=== PATIENT | female | born 1955 | race Caucasian/White ===

== ENCOUNTER 2023-04-02 19:22 | Emergency (ER) | payer OTHER, MEDICARE, BC, SELFPAY ==
[2023-04-02 19:22] VITALS: BP 199/107; PULSE 79; RESP 16; TEMP 36.7; O2SAT 100
--- NOTE | 2023-04-02 19:22 | XR_ITS ---
PROCEDURE INFORMATION: Exam: XR Right Shoulder Exam date and time: 04/02/2023 7:58 PM Age: 68 years old Clinical indication: Injury or trauma; Fall; Additional info: Fall, pain TECHNIQUE: Imaging protocol: Radiologic exam of the right shoulder. Views: 2 or more views. COMPARISON: CT CERVICAL SPINE WO CON 04/02/2023 7:40 PM FINDINGS: Bones/joints: Comminuted displaced fracture of the distal clavicle with the proximal fragment elevated approximally 16 mm, potentially breaching the skin surface. Soft tissues: See Bones/joints finding. IMPRESSION: Comminuted displaced fracture of the distal clavicle with the proximal fragment elevated approximally 16 mm, potentially breaching the skin surface.
--- NOTE | 2023-04-02 19:22 | CT_ITS ---
PROCEDURE INFORMATION: Exam: CT Head Without Contrast Exam date and time: 04/02/2023 7:38 PM Age: 68 years old Clinical indication: Injury or trauma; Fall TECHNIQUE: Imaging protocol: Computed tomography of the head without contrast. Radiation optimization: All CT scans at this facility use at least one of these dose optimization techniques: automated exposure control; mA and/or kV adjustment per patient size (includes targeted exams where dose is matched to clinical indication); or iterative reconstruction. REPORTING DATA: Count of CT and Cardiac NM exams in prior 12 months: This patient has received 0 known CTs and 0 known cardiac nuclear medicine studies in the 12 months prior to the current study. COMPARISON: No relevant prior studies available. FINDINGS: Brain: White matter hypodensity which is nonspecific but compatible with small vessel occlusive change. Global atrophy. No mass. No hemorrhage. Cerebral ventricles: No ventriculomegaly. Paranasal sinuses: No fluid levels. Mastoid air cells: Visualized mastoid air cells are well aerated. Bones/joints: No acute fracture. Soft tissues: No significant soft tissue abnormality. IMPRESSION: Chronic changes without acute process.
--- NOTE | 2023-04-02 19:22 | CT_ITS ---
PROCEDURE INFORMATION: Exam: CT Cervical Spine Without Contrast Exam date and time: 04/02/2023 7:40 PM Age: 68 years old Clinical indication: Injury or trauma; Fall; Additional info: Fall, pain TECHNIQUE: Imaging protocol: Computed tomography of the cervical spine without contrast. Radiation optimization: All CT scans at this facility use at least one of these dose optimization techniques: automated exposure control; mA and/or kV adjustment per patient size (includes targeted exams where dose is matched to clinical indication); or iterative reconstruction. REPORTING DATA: Count of CT and Cardiac NM exams in prior 12 months: This patient has received 0 known CTs and 0 known cardiac nuclear medicine studies in the 12 months prior to the current study. COMPARISON: CT HEAD/BRAIN WO CON 04/02/2023 7:38 PM FINDINGS: Bones/joints: Degenerative changes of the spine. Scoliosis. No fracture. Lungs: Apical emphysema. Soft tissues: No soft tissue swelling. IMPRESSION: Chronic changes without acute process.
[2023-04-02 19:30] VITALS: BP 177/103; PULSE 76; O2SAT 100
[2023-04-02 20:00] VITALS: BP 194/118; PULSE 83; O2SAT 100
--- NOTE | 2023-04-02 20:23 | PC.NURSE ---
Pt provided with water
[2023-04-02 20:30] VITALS: BP 194/105; PULSE 81; O2SAT 100
--- NOTE | 2023-04-02 22:05 | PC.NURSE ---
Rounded on pt. No needs or complaints at this time. Call light within reach.
--- NOTE | 2023-04-02 22:28 | HMH.EDGENADL ---
Discharge Plan Disposition Patient Disposition: Hospice - Home Condition: Fair Referrals Follow up/Referrals: López Mendosa [Primary Care Provider] - See instructions Clinical Impressions Clinical Impression: Closed fracture of right clavicle Instructions Patient Instructions: DI for Clavicle Fracture-Adult, How to Prevent Falls Discharge ED Provider: Julien Fisher Adult [facility] General Chief complaint: Fall Stated complaint: FALL, SHOULDER PAIN Time Seen by Provider: 04/02/23 19:22 Mode of Arrival: Ambulatory Source of Information: Patient and EMS Limitations: No Limitations Description of Symptoms (Recalled from ER Triage Doc. by RN): EMs brings in pt for c/o right shoulder and right lower leg pain after she fell around 1800 this evening. -loc, -blood thinner. Pt was attempting to close an air vent on her ceiling when she fell from standing on her hosital bed. Pt is a hospice pt who is on 6 L NC baseline. History of Present Illness MD complaint: fall Onset (ago): hour(s) (2) Location: upper extremity (right shoulder) Severity scale (1-10): 5 Related Data Allergies Allergy/AdvReac Type Severity Reaction Status Date / Time No Known Allergies Allergy Verified 04/02/23 20:46 [facility] Disclaimer: The information contained in this section may have been updated after the patient was seen, as this information can be updated by other users. Social History Smoking Status: Former smoker alcohol intake: never current occupational status: retired Travel in the last 8 weeks: None ROS Obtained: Yes Systems reviewed as appropriate & no additional complaints except as documented Musculoskeletal Musculoskeletal: Reports arthralgias Physical Exam General General appearance: alert and in no apparent distress Eye Eye exam: Present EOMI ENT ENT exam: Present normal exam Chest Chest inspection: Present tenderness and other (deformity) Respiratory Respiratory exam: Present wheezes Cardiovascular Cardiovascular exam: Present regular rate Neurological Exam Neurological exam: Absent motor sensory deficit Psychiatric Psychiatric exam: Present normal affect and normal mood Skin Skin exam: Present warm, dry and intact Medical Decision Making Renzo Inquiry Pt receiving controlled substance: No Vital Signs: 04/02/23 19:22 04/02/23 19:30 04/02/23 20:00 Temperature 98.1 F Temperature Source Oral Pulse Rate 76 83 Pulse Rate [Left] 79 Respiratory Rate 16 Blood Pressure 177/103 H 194/118 H Blood Pressure [Left Arm] 199/107 H Blood Pressure Mean Blood Pressure Mean [Left Arm] 137 02 Sat by Pulse Oximetry 100 100 100 Oxygen Delivery Method Nasal Cannula Oxygen Flow Rate (LPM) 6 04/02/23 20:30 Temperature Temperature Source Pulse Rate 81 Pulse Rate [Left] Respiratory Rate Blood Pressure 194/105 H Blood Pressure [Left Arm] Blood Pressure Mean 133 Blood Pressure Mean [Left Arm] 02 Sat by Pulse Oximetry 100 Oxygen Delivery Method Oxygen Flow Rate (LPM) Orders (Tests/Meds): ED MEDICATIONS Generic Name Dose Route Start Last Admin Trade Name Freq PRN Reason Stop Dose Admin Morphine Sulfate 4 mg 04/02/23 20:21 04/02/23 20:48 Morphine 4mg/Ml Syringe IV 05/02/23 20:20 4 mg Q1HP PRN Administration Breakthru Moderate Pain Sodium Chloride 10 ml 04/02/23 20:21 Sodium Chloride 0.9% 10ml Flush Syringe IV 05/02/23 20:20 NEEDED PRN Maintain IV Site Discontinued Medications Generic Name Dose Route Start Last Admin Trade Name Freq PRN Reason Stop Dose Admin Hydralazine HCl 10 mg 04/02/23 21:55 04/02/23 22:01 Hydralazine 20mg/Ml Vial IV 04/02/23 21:56 10 mg ONCE ONE Administration ORDERS Category Date Time Status CT cervical spine wo con Stat Cat Scan 04/02/23 19:[address] head/brain wo con Stat Cat Scan 04/02/23 19:22 Completed XR shoulder RT min 2V Stat Exams 04/02/23 19:22 Completed Med
--- NOTE | 2023-04-02 23:03 | PC.NURSE ---
Patient requested ambulance transport home due to the fact that she does not have transport oxygen with her. However, when we called [facility], we were informed that the patient would not be eligible for transport home since she has a pre-established need for oxygen (and thus has transport oxygen available). Patients daughter, who is at bedside, asked if the hospital had an oxygen tank that we could send home with them and I informed her that the hospital is not able to provide patients with discharge oxygen tanks. I did offer to check into contacting [employer] [facility] to get home oxygen. Patients daughter said that it was okay, that she would just go home and get the oxygen tank and bring it back. I did apologize for the inconvenience.
[2023-04-03 00:06] VITALS: BP 168/103; PULSE 80; RESP 18; TEMP 36.6; O2SAT 98
== END 2023-04-03 00:09 | disposition hospice, home (50) ==
PROVIDERS: Emergency Provider Emergency Medicine; PCP Pediatrics
DX: S42.001A Fracture of unspecified part of right clavicle, initial encounter for closed fracture (principal); M79.661 Pain in right lower leg; W19.XXXA Unspecified fall, initial encounter; Z87.891 Personal history of nicotine dependence
CPT/HCPCS: 70450; 72125; 73030; 96374; 96375; 99285

== ENCOUNTER 2023-04-17 19:28 | Inpatient (IN) | payer OTHER, MEDICARE, BC, SELFPAY ==
[2023-04-17] VITALS (7 sets, daily range): BP systolic 160–204; BP diastolic 100–124; PULSE 81–98; RESP 18–25; TEMP 36.8–36.9; O2SAT 98–100; BMI 20.4
--- NOTE | 2023-04-17 19:29 | CT_ITS ---
PROCEDURE INFORMATION: Exam: CT Abdomen And Pelvis With Contrast Exam date and time: 04/17/2023 8:21 PM Age: 68 years old Clinical indication: Vomiting; Abdominal pain; Additional info: Abdominal pain vomiting TECHNIQUE: Imaging protocol: Computed tomography of the abdomen and pelvis with contrast. Radiation optimization: All CT scans at this facility use at least one of these dose optimization techniques: automated exposure control; mA and/or kV adjustment per patient size (includes targeted exams where dose is matched to clinical indication); or iterative reconstruction. Contrast material: ISOVUE; Contrast volume: 75 ml; Contrast route: IV; REPORTING DATA: Count of CT and Cardiac NM exams in prior 12 months: This patient has received 2 known CTs and 0 known cardiac nuclear medicine studies in the 12 months prior to the current study. COMPARISON: No relevant prior studies available. FINDINGS: Lungs: Hypoventilatory changes at the lung bases. No lobar consolidation. Diaphragm: Small hiatal hernia. Liver: Normal. No mass. Gallbladder and bile ducts: No calcified stones. No ductal dilation. Pancreas: Normal enhancement. No ductal dilation. Spleen: No splenomegaly. Adrenal glands: No mass. Kidneys and ureters: Renal cysts measuring up to 12 mm. No hydronephrosis. Stomach and bowel: Moderately distended loops of small bowel within the left abdomen measuring up to 2.4 cm with relative distal decompression. Appendix: No evidence of appendicitis. Intraperitoneal space: No significant fluid collection. No free air. Vasculature: Calcified aortic atherosclerosis. No aneurysm. Lymph nodes: No enlarged lymph nodes. Urinary bladder: Moderately distended urinary bladder. Reproductive: No acute abnormality. Bones/joints: Degenerative changes of the spine. No fracture. Soft tissues: No soft tissue swelling. Other findings: Exam is limited by patient motion. IMPRESSION: Moderately distended loops of small bowel within the left abdomen for which correlation with potential partial obstruction and or enteritis is recommended. Other chronic and incidental findings described above.
--- NOTE | 2023-04-17 19:36 | PC.NURSE ---
USHA MOON at
--- NOTE | 2023-04-17 19:37 | HMH.EDGENADL ---
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 She says that the pain began this morning and was sharp and severe. Since that point she has been nauseated however not vomiting until she got here. No fever or chills. No dysuria hematuria. She has had watery stools and has been passing stool. Has not felt like eating all day only eating yogurt. Related Data Allergies Allergy/AdvReac Type Severity Reaction Status Date / Time No Known Allergies Allergy Verified 04/02/23 20:46 <Vladimir Paredes (ED)MD - Last Filed: 04/17/23 22:02> History of Present Illness Onset (ago): hour(s) Severity: moderate Associated symptoms: denies other symptoms PFSH <Kishore Jo MD - Last Filed: 04/17/23 19:40> PFSH Disclaimer: The information contained in this section may have been updated after the patient was seen, as this information can be updated by other users. Social History (Updated 04/02/23 @ 22:47 by Julien Fisher MD) Smoking Status: Former smoker alcohol intake: never current occupational status: retired Travel in the last 8 weeks: None <Kishore Jo MD - Last Filed: 04/17/23 19:40> ROS Obtained: Yes All systems reviewed & no additional complaints except as documented Constitutional Constitutional: Denies fatigue and Denies headache(s) Eyes Eyes: Denies dry eyes ENT Ears, Nose, Mouth, and Throat: Denies dry mouth and Denies headache(s) Cardiovascular Cardiovascular: Denies dyspnea Respiratory Respiratory: Denies dyspnea and Denies wheezing Gastrointestinal Gastrointestingal: Denies coffee ground emesis or excessive flatus Genitourinary Female Genitourinary: Denies hematuria Musculoskeletal Musculoskeletal: Denies joint stiffness Integumentary/Breasts Skin/Breast: Denies dry skin Neurologic Neurologic: Denies headache(s) Endocrine Endocrine: Denies fatigue Hematologic/Lymphatic Henatologic/Lymphatic: Denies easy bleeding Allergic/Immunologic Allergic/Immunologic: Denies urticaria and Denies wheezing Physical Exam <Kishore Jo MD - Last Filed: 04/17/23 19:40> General General appearance: alert and in no apparent distress Eye Eye exam: Present PERRL and EOMI ENT ENT exam: Present normal exam and normal oropharynx Neck Neck exam: Present normal inspection Chest Chest inspection: Present symmetric chest wall rise Respiratory Respiratory exam: Present normal lung sounds bilaterally; Absent respiratory distress Cardiovascular Cardiovascular exam: Present regular rate and normal rhythm Abdominal Exam Abdominal exam: Present soft and tenderness (Epigastric tenderness); Absent distention, guarding, rebound, Peralta's sign or tenderness at McBurney's Point Back Exam Back exam: Present normal inspection Neurological Exam Neurological exam: Present alert and oriented X3 Psychiatric Psychiatric exam: Present normal affect and normal mood Skin Skin exam: Present warm, dry and intact Lymphatic Lymphatic Findings: no adenopathy <Vladimir Paredes MD (ED) - Last Filed: 04/17/23 22:02> Head Head exam: normocephalic Extremities Exam Extremities exam: Present full ROM Medical Decision Making <Kishore Jo MD - Last Filed: 04/17/23 19:40> Medical Records Medical records reviewed: Yes I reviewed the patient's medical records. Renzo Inquiry Pt receiving controlled substance: No Renzo was queried for this patient: No Vital Signs:
[2023-04-17 19:47] LABS: Basophils % 0.1 % (0.1-2.0); Eosinophils # 0.1 K/mm3 (0.0-0.4); Eosinophils % 0.4 % (0.1-12.0); Hematocrit 36.7 % (37.0-47.0); Hemoglobin 11.8 g/dL (12.2-16.2); Lymphocytes % 6.5 % (10-50); Mean Corpuscular HGB Conc 32.1 g/dL (31.8-35.4); Mean Corpuscular Hemoglobin 27.9 pg (27.0-31.2); Mean Corpuscular Volume 86.9 fl (81-99); Mean Platelet Volume 7.3 fl (7.4-10.4); Monocytes # 0.5 K/mm3 (0.1-1.0); Platelet Count 478 K/mm3 (142-424); Red Blood Count 4.22 M/mm3 (4.20-5.40); White Blood Count 15.6 K/mm3 (4.8-10.8)
[2023-04-17 19:49] LABS: MANUAL DIFFERENTIAL MANUAL DIFFERENTIAL (MANUAL DIFF)
[2023-04-17 19:52] LABS: Sodium 126 mmol/L (136-145)
[2023-04-17 19:54] LABS: Alanine Aminotransferase 31 U/L (12-78); Alkaline Phosphatase 140 U/L (38-126); Aspartate Amino Transferase 43 U/L (14-36); Bilirubin,Total 0.4 mg/dl (0.2-1.3); Blood Urea Nitrogen 11 mg/dl (7-17); Creatinine Clearance Estimated 46 mL/min (50-200); Estimated Glomerular Filt Rate 99 ml/min (>60); GFR (African American) 120 ML/MIN (>60)
[2023-04-17 19:55] LABS: Albumin Level 4.9 g/dl (3.5-5.0); Albumin/Globulin Ratio 1.5 (1.1-1.8); Calcium 10.1 mg/dl (8.4-10.2); Carbon Dioxide 39 mmol/L (22.0-30.0); Globulin 3.2 g/dL (1.3-3.2); Glucose 128 mg/dl (74-100); Lipase 163 U/L (23-300); Total Protein,Serum 8.1 g/dl (6.3-8.2)
--- NOTE | 2023-04-17 20:06 | PC.NURSE ---
Manual BP: 160/102
[2023-04-17 20:07] LABS: Chloride 75 mmol/L (98-107)
--- NOTE | 2023-04-17 20:07 | PC.NURSE ---
Dr. Paredes notified of critical Chloride
--- NOTE | 2023-04-17 20:07 | PC.NURSE ---
Pt adjusted in bed and provided with warm blanket and pillow
[2023-04-17 20:08] LABS: Troponin I < 0.01 ng/ml (0.00-0.034)
--- NOTE | 2023-04-17 20:09 | PC.NURSE ---
collecting blood cultures & lactic. Also, called respiratory to collect an ABG
--- NOTE | 2023-04-17 20:16 | PC.NURSE ---
Pt gone to RAD via stretcher
[2023-04-17 20:22] LABS: Lymphocytes % 12 % (10-50); Monocytes % 1 % (2-9); Neutrophils % 87 % (42-76); Platelet Estimate Normal; Stomatocytes 1+; Total Cells Counted 100
--- NOTE | 2023-04-17 20:27 | PC.NURSE ---
PT returned from RAD. RT at to obtain ABG
[2023-04-17 20:36] LABS: Lactic Acid 0.8 mmol/L (0.7-2.1)
--- NOTE | 2023-04-17 20:40 | PC.NURSE ---
obtaining the 2nd set of blood cultures
--- NOTE | 2023-04-17 20:45 | ECG_ITS ---
APPROVED REPORT Exam: Resting ECG HR:88 bpm ECG Measurements Heart Rate 88 AXES CA 157 P 78 QRSd 84 QRS 80 QT 357 T 79 QTc 402 Conclusion SINUS RHYTHM Bi-atrial abnormality BORDERLINE ECG UNCONFIRMED REPORT Electronically signed by : Sree Emanuel MD 04/18/2023 21:21:28
[2023-04-17 21:00] LABS: ABG Base Excess 6.6 mmol/L (-2.4-2.3); ABG HCO3 31.9 mmhg (22.0-26.0); ABG Oxygen Saturation 99 % (90-100); ABG PH 7.37 mmol/L (7.35-7.45); ABG TCO2 33.6 mmhg (23-27)
[2023-04-17 21:01] LABS: Allen's Test Acceptable; Oxygen 6L %; Source Left Brachial
[2023-04-17 21:02] LABS: ABG PCO2 56.4 mmhg (35.0-45.0)
--- NOTE | 2023-04-17 21:07 | PC.NURSE ---
Pt got up to bedside toilet. Pt unable to void at this time. Covid swab obtained. No other needs or complaints voiced.
[2023-04-17 21:09] LABS: Coronavirus 19, PCR Not Detected (NotDetected); Influenza A, PCR Not Detected (NotDetected); Influenza B, PCR Not Detected (NotDetected)
--- NOTE | 2023-04-17 21:48 | PC.NURSE ---
Dr. Paredes at to update pt/family of results
--- NOTE | 2023-04-17 22:02 | PC.NURSE ---
Hospitalist, Franko, at BS
[2023-04-17 22:09] LABS: Troponin I < 0.01 ng/ml (0.00-0.034)
--- NOTE | 2023-04-17 22:09 | EXP.HP ---
History of Present Illness *Admission Date: 04/17/23 *Reason for visit:: nausea, vomiting, diarrhea, abdominal pain *History of present illness: Ms. Baltazar is a 68-year-old female who is currently under the care of Hospice due to COPD. She presents to [facility] due to a 1-day history of nausea, vomiting, abdominal pain. In the ER she underwent a CT of the abdomen and pelvis concerning for partial SBO. She received antiemetics and fluids. CMP shows a sodium of 126, CBC shows a WBC of 15.6. She will be placed on iv fluids and given antibiotics empirically, made NPO, surgery will be consulted for evaluation and further recommendations. ER Physician called for admission. [facility] Disclaimer: The information contained in this section may have been updated after the patient was seen, as this information can be updated by other users. Medical History (Updated 04/17/23 @ 22:16 by Franko Grubbs DNP) COPD (chronic obstructive pulmonary disease) Social History Smoking Status: Former smoker alcohol intake: never current occupational status: retired Travel in the last 8 weeks: None Review of Systems Review of Systems Review of systems:: pertinent systems reviewed and negative unless documented below Constitutional Constitutional: Denies headache(s) Eyes Eyes: Reports system reviewed and no additional complaints, except as documented ENT Ears, Nose, Mouth, and Throat: Denies headache(s) *Cardiovascular Cardiovascular: Reports system reviewed and no additional complaints, except as documented *Respiratory Respiratory: Reports system reviewed and no additional complaints, except as documented *Gastrointestinal Gastrointestinal: Reports abdominal pain, Reports nausea and Reports vomiting *Genitourinary Genitourinary: Reports system reviewed and no additional complaints, except as documented *Musculoskeletal Musculoskeletal: Reports system reviewed and no additional complaints, except as documented Integumentary/Breasts Skin/Breast: Reports system reviewed and no additional complaints, except as documented *Neurologic Neurologic: Denies headache(s) Psychiatric Psychiatric: Reports system reviewed and no additional complaints, except as documented Endocrine Endocrine: Reports system reviewed and no additional complaints, except as documented Hematologic/Lymphatic Hematologic/Lymphatic: Reports system reviewed and no additional complaints, except as documented Allergic/Immunologic Allergic/Immunologic: Reports system reviewed and no additional complaints, except as documented Meds Home Medications and Allergies Home Medications Medication Instructions Recorded Confirmed Type albuterol sulfate 90 mcg/actuation 2 puff inhalation QIDP PRN 04/17/23 04/17/23 History aerosol inhaler shortness of air dexamethasone 4 mg tablet 2 mg PO DAILY copd- hospice 04/17/23 04/17/23 History diazepam 5 mg tablet (Valium) 5 mg PO Q6HP PRN anxiety/SOB- 04/17/23 04/17/23 History hospice fluticasone propionate 50 1 spray intranasal BID Allergy 04/17/23 04/17/23 History mcg/actuation nasal symptoms spray,suspension guaifenesin 600 mg tablet, 600 mg PO BIDP PRN Congestion 04/17/23 04/18/23 History extended release 12 hr (Mucinex) hydroxyzine HCl 25 mg tablet 25 mg PO Q6HP PRN anxiety, itching 04/17/23 04/17/23 History ibuprofen 200 mg tablet 400 mg PO Q6HP PRN Pain 04/17/23 04/18/23 History ipratropium 0.5 mg-albuterol 3 mg 3 ml inhalation Q4HP PRN SOA- copd 04/17/23 04/18/23 History (2.5 mg base)/3 mL nebulization soln lactulose 10 gram/15 mL oral 30 ml PO DAILYP PRN Constipation 04/17/23 04/18/23 History solution mirtazapine 15 mg tablet (Remeron) 15 mg PO HS Depression 04/17/23 04/17/23 History morphine 100 mg/5 mL oral 10 - 20 mg PO Q6HP PRN hospice- 04/17/23 04/18/23 History concentrate pain morphine 30 mg tablet,extended 30 mg PO TID hospice- pain/
--- NOTE | 2023-04-17 22:26 | PC.NURSE ---
Pt up to bedside toilet. Urine sample obtained. No other needs voiced.
[2023-04-17 22:29] LABS: Microscopic, Urine URINE MICROSCOPIC (MICROSCOPIC)
--- NOTE | 2023-04-17 22:29 | PC.NURSE ---
Gave report to Ariel TONG on 2nd floor. Techs notified that report was given also.
--- NOTE | 2023-04-17 22:39 | PC.NURSE ---
pt arrived to floor at this time
[2023-04-17 22:44] LABS: Appearance,Urine CLEAR (Clear); Bilirubin,Urine Negative (Negative); Blood, Urine Negative (Negative); Color,Urine YELLOW (Yellow); Glucose,Urine (UA) Negative (Negative); Ketones,Urine Negative (Negative); Leukocyte Esterase,Urine Negative (Negative); Nitrate,Urine Negative (Negative); Protein,Urine Negative (Negative); Urobilinogen,Urine 0.2 EU/dl (0.2)
[2023-04-17 23:25] LABS: Squamous Epithelial Cell,Urine Occasional #/hpf (0-5)
[2023-04-18 01:35] LABS: Sodium 127 mmol/L (136-145)
[2023-04-18 01:53] LABS: Troponin I < 0.01 ng/ml (0.00-0.034)
[2023-04-18 04:00] VITALS: BP 195/113; PULSE 89; RESP 20; TEMP 36.9; O2SAT 100; BMI 20.4
[2023-04-18 05:26] LABS: Basophils % 0.1 % (0.1-2.0); Eosinophils # 0.1 K/mm3 (0.0-0.4); Eosinophils % 0.6 % (0.1-12.0); Hematocrit 33.8 % (37.0-47.0); Lymphocytes # 1.4 K/mm3 (0.7-4.5); Lymphocytes % 7.4 % (10-50); Mean Corpuscular HGB Conc 32.4 g/dL (31.8-35.4); Mean Corpuscular Hemoglobin 28.4 pg (27.0-31.2); Mean Corpuscular Volume 87.7 fl (81-99); Mean Platelet Volume 7.2 fl (7.4-10.4); Monocytes # 0.8 K/mm3 (0.1-1.0); Monocytes % 4.2 % (1.7-9.3); Neutrophils # 16.4 K/mm3 (1.8-7.8); Neutrophils % 87.7 % (37.0-80.0); Platelet Count 483 K/mm3 (142-424); Red Blood Count 3.86 M/mm3 (4.20-5.40); Red Cell Distribution Width 15.2 % (11.5-17.5); White Blood Count 18.7 K/mm3 (4.8-10.8)
[2023-04-18 05:31] LABS: MANUAL DIFFERENTIAL MANUAL DIFFERENTIAL (MANUAL DIFF)
[2023-04-18 05:35] LABS: Alanine Aminotransferase 25 U/L (12-78); Albumin Level 4.1 g/dl (3.5-5.0); Albumin/Globulin Ratio 1.6 (1.1-1.8); Alkaline Phosphatase 123 U/L (38-126); Anion Gap 15.8 mEq/L (5-15); Aspartate Amino Transferase 37 U/L (14-36); Bilirubin,Total 0.6 mg/dl (0.2-1.3); Blood Urea Nitrogen 9 mg/dl (7-17); Calcium 8.6 mg/dl (8.4-10.2); Carbon Dioxide 33 mmol/L (22.0-30.0); Chloride 85 mmol/L (98-107); Creatinine Clearance Estimated 47 mL/min (50-200); Estimated Glomerular Filt Rate 99 ml/min (>60); GFR (African American) 120 ML/MIN (>60); Globulin 2.6 g/dL (1.3-3.2); Glucose 104 mg/dl (74-100); Potassium 3.8 mmoL/L (3.5-5.1); Sodium 130 mmol/L (136-145); Total Protein,Serum 6.7 g/dl (6.3-8.2)
[2023-04-18 06:53] LABS: Lymphocytes % 6 % (10-50); Monocytes % 5 % (2-9); Neutrophils % 89 % (42-76); Total Cells Counted 100
[2023-04-18 06:54] LABS: Platelet Estimate Slight Increase; RBC Morphology Normal
[2023-04-18 07:40] VITALS: BP 183/83; PULSE 83; RESP 18; TEMP 36.8; O2SAT 100
--- NOTE | 2023-04-18 07:46 | EXP.PN ---
Subjective *Date: 04/18/23 *Time: 11:51 Interval history: Systolic blood pressures have been elevated from 170-195. She is saturating 100% on 7L NC CBC is with 18.7K WBCs, increased from 15.6K Na is 130, increased from 126 She denies abdominal pain. She hasn't vomited this morning. Exam Data for Last 24 hours Vital signs and Labs for Last 24 Hours: Temp Pulse Resp BP Pulse Ox 98.3 F 83 18 183/83 H 100 04/18/23 07:40 04/18/23 07:40 04/18/23 07:40 04/18/23 07:40 04/18/23 07:40 Laboratory Results - last 24 hr 04/17/23 19:35: WBC 15.6 H, RBC 4.22, Hgb 11.8 L, Hct 36.7 L, MCV 86.9, MCH 27.9, MCHC 32.1, RDW 15.0, Plt Count 478 H, MPV 7.3 L, Neut % (Auto) 90.0 H, Lymph % (Auto) 6.5 L, Becker % (Auto) 3.0, Eos % (Auto) 0.4, Baso % (Auto) 0.1, Neut # (Auto) 14.0 H, Lymph # (Auto) 1.0, Becker # (Auto) 0.5, Eos # (Auto) 0.1, Baso # (Auto) 0.0, Total Counted 100, Neutrophils % (Manual) 87 H, Lymphocytes % (Manual) 12, Monocytes % (Manual) 1 L, Platelet Estimate Normal, Stomatocytes 1+ 04/17/23 19:35: Sodium 126 L, Potassium 4.0, Chloride 75 L, Carbon Dioxide 39 H, Anion Gap 16.0 H, BUN 11, Creatinine 0.60, Estimated Creat Clear 46, Estimated GFR 99, Est GFR ( Amer) 120, Glucose 128 H, Calcium 10.1, Total Bilirubin 0.4, AST 43 H, ALT 31, Alkaline Phosphatase 140 H, Troponin I < 0.01, Total Protein 8.1, Albumin 4.9, Globulin 3.2, Albumin/Globulin Ratio 1.5, Lipase 163 04/17/23 20:09: Specimen Source Left brachial, O2 % 6l, ABG pH 7.37, ABG pCO2 56.4 H, ABG pO2 154.0 H, ABG HCO3 31.9 H, ABG Total CO2 33.6 H, ABG O2 Saturation 99, ABG Base Excess 6.6 H, Max Test Acceptable 04/17/23 20:17: Lactate 0.8 04/17/23 21:06: SARS-CoV-2 (PCR) Not detected, Influenza A Untype (PCR) Not detected, Influenza Type B (PCR) Not detected 04/17/23 21:39: Troponin I < 0.01 04/17/23 22:24: Urine Color Yellow, Urine Appearance Clear, Urine pH 8.0, Ur Specific [place] 1.010, Urine Protein Negative, Urine Glucose (UA) Negative, Urine Ketones Negative, Urine Blood Negative, Urine Nitrate Negative, Urine Bilirubin Negative, Urine Urobilinogen 0.2, Ur Leukocyte Esterase Negative, Urine RBC None, Urine WBC None, Ur Squamous Epith Cells Occasional, Urine Bacteria None 04/18/23 01:15: Sodium 127 L, Troponin I < 0.01 04/18/23 04:43: Sodium 130 L, Potassium 3.8, Chloride 85 L, Carbon Dioxide 33 H, Anion Gap 15.8 H, BUN 9, Creatinine 0.60, Estimated Creat Clear 47, Estimated GFR 99, Est GFR ( Amer) 120, Glucose 104 H, Calcium 8.6, Total Bilirubin 0.6, AST 37 H, ALT 25, Alkaline Phosphatase 123, Total Protein 6.7, Albumin 4.1 D, Globulin 2.6, Albumin/Globulin Ratio 1.6 04/18/23 04:43: WBC 18.7 H, RBC 3.86 L, Hgb 11.0 L, Hct 33.8 L, MCV 87.7, MCH 28.4, MCHC 32.4, RDW 15.2, Plt Count 483 H, MPV 7.2 L, Neut % (Auto) 87.7 H, Lymph % (Auto) 7.4 L, Becker % (Auto) 4.2, Eos % (Auto) 0.6, Baso % (Auto) 0.1, Neut # (Auto) 16.4 H, Lymph # (Auto) 1.4, Becker # (Auto) 0.8, Eos # (Auto) 0.1, Baso # (Auto) 0.0, Total Counted 100, Neutrophils % (Manual) 89 H, Lymphocytes % (Manual) 6 L, Monocytes % (Manual) 5, Platelet Estimate Slight increase, RBC Morphology Normal I & O for Last 24 hours: Intake & Output 04/15/23 04/16/23 04/17/23 04/18/23 23:59 23:59 23:59 23:59 Intake Total 1625 / 1625 Output Total 0 / 0 Balance 1625 / 1625 0 / 0 Weight 55.593 kg 55.593 kg Constitutional Constitutional: no acute distress *Routine HEENT Exam Head: Present normocephalic Eye: Present EOMI and PERRL ENT: Present mucous membranes moist *Routine Neck Exam Neck: Present supple; Absent lymphadenopathy *Routine Respiratory Exam Respiratory: Present CTA bilaterally *Routine Cardiovascular Exam Cardiovascular: Present RRR *Routine Abdominal Exam Abdominal: Present soft and normoactive bowel sounds; Absent tenderness *Routine Extremities Exam Extremities: Absent cyanosis, clubbing or edema *Routine Skin Exam Skin: Present warm; Absent rash *Routine Neurological Exam Neurological: Present al
--- NOTE | 2023-04-18 07:55 | EXP.SURG.CON ---
History of Present Illness *Admission Date: 04/17/23 *Reason for visit:: Possible bowel obstruction *History of present illness: Patient is a 68-year-old female from [place] on hospice care for end-stage COPD. She has some difficulty recalling the exact details leading up to her admission but she had apparently developed some emesis described as water yesterday. She had some reported associated abdominal pain. She states that she normally moves her bowels quite regularly and believes that her last bowel movement was on Monday. She was evaluated in the emergency department. Work-up included CT scan which revealed moderately distended loops of small bowel within the left abdomen for which correlation with potential partial obstruction and/or enteritis is recommended. Patient has had previous . No other significant abdominal surgeries. Does not recall having a colonoscopy. She has leukocytosis of 18,700. Sodium on admission was 126, this morning 130, chloride 85, liver function tests reveal slightly above normal AST of 43 on admission and 37 this morning. Lipase normal. [facility] Disclaimer: The information contained in this section may have been updated after the patient was seen, as this information can be updated by other users. Medical History (Updated 04/17/23 @ 22:16 by Franko Grubbs DNP) COPD (chronic obstructive pulmonary disease) Social History Smoking Status: Former smoker alcohol intake: never current occupational status: retired Travel in the last 8 weeks: None Review of Systems Constitutional Constitutional: Denies headache(s) ENT Ears, Nose, Mouth, and Throat: Denies headache(s) *Neurologic Neurologic: Denies headache(s) Meds Home Medications and Allergies Home Medications Medication Instructions Recorded Confirmed Type albuterol sulfate 90 mcg/actuation 2 puff inhalation QIDP PRN 04/17/23 04/17/23 History aerosol inhaler shortness of air dexamethasone 4 mg tablet 2 mg PO DAILY copd- hospice 04/17/23 04/17/23 History diazepam 5 mg tablet (Valium) 5 mg PO Q6HP PRN anxiety/SOB- 04/17/23 04/17/23 History hospice fluticasone propionate 50 1 spray intranasal BID Allergy 04/17/23 04/17/23 History mcg/actuation nasal symptoms spray,suspension guaifenesin 600 mg tablet, 1,200 mg PO BID copd, mucus 04/17/23 04/17/23 History extended release 12 hr (Mucinex) hydroxyzine HCl 25 mg tablet 25 mg PO Q6HP PRN anxiety, itching 04/17/23 04/17/23 History ibuprofen 200 mg tablet 400 mg PO Q6H PRN Pain 04/17/23 04/17/23 History ipratropium 0.5 mg-albuterol 3 mg 3 ml inhalation Q4H PRN SOA- copd 04/17/23 04/17/23 History (2.5 mg base)/3 mL nebulization soln lactulose 10 gram/15 mL oral 30 ml PO DAILY PRN Constipation 04/17/23 04/17/23 History solution mirtazapine 15 mg tablet (Remeron) 15 mg PO HS sleep 04/17/23 04/17/23 History morphine 100 mg/5 mL oral 20 mg PO Q6HP PRN hospice- pain 04/17/23 04/17/23 History concentrate morphine 30 mg tablet,extended 1 mg PO TID hospice- pain 04/17/23 04/17/23 History release ondansetron HCl 4 mg tablet 4 mg PO Q6H PRN nausea, vomiting 04/17/23 04/17/23 History sennosides 8.6 mg-docusate sodium 2 tab-cap PO HS constipation 04/17/23 04/17/23 History 50 mg tablet (Senexon-S) sodium chloride 0.65 % nasal spray 2 spray intranasal Q2H PRN dryness 04/17/23 04/17/23 History aerosol (Deep Sea Nasal) surgical lubricant jelly 1 ea topical DAILYP PRN nose 04/17/23 04/17/23 History (Surgilube topical gel) moisture New Prescriptions to Start Prescriptions: Allergies Allergy/AdvReac Type Severity Reaction Status Date / Time No Known Allergies Allergy Verified 04/02/23 20:46 Exam (Inpt) Vital signs and Labs for Last 24 Hours: Temp Pulse Resp BP Pulse Ox 98.3 F 83 18 183/83 H 100 04/18/23 07:40 04/18/23 07:40 04/18/23 07:40 04/18/23 07:40 04/18/23
--- NOTE | 2023-04-18 08:59 | P.CONPHA_ITS ---
Pharmacy Intervention Comments: home medication list verified using list from [facility]
--- NOTE | 2023-04-18 08:59 | HMH.PHAINT1 ---
Pharmacy Intervention Comments: home medication list verified using list from [facility]
[2023-04-18 12:00] VITALS: BP 143/83; PULSE 86; RESP 18; TEMP 36.6; O2SAT 100
--- NOTE | 2023-04-18 14:01 | SW/DCPLANNER ---
Addendum entered by Cynthia Mendosa 04/19/23 10:48: I have updated Iman w/ [facility] that patient will discharge home today. Original Note: Patient is currently established with [facility]. Patient information has been faxed to [employer]: Iman stated that patient's stay will be related to Hospice diagnosis.
[2023-04-18 14:21] VITALS: BMI 20.2
[2023-04-18 16:00] VITALS: BP 126/75; PULSE 86; RESP 16; TEMP 36.8; O2SAT 100
[2023-04-18 20:00] VITALS: BP 143/80; PULSE 80; RESP 17; TEMP 36.6; O2SAT 100
[2023-04-19] VITALS: BP 180/74; PULSE 66; RESP 16; TEMP 36.4; O2SAT 95
[2023-04-19 01:36] VITALS: BP 132/80
[2023-04-19 04:00] VITALS: BP 160/101; PULSE 85; RESP 17; TEMP 36.7; O2SAT 99; BMI 20.5
--- NOTE | 2023-04-19 05:21 | PC.NURSE ---
nurse knows about blood pressure.
[2023-04-19 06:48] LABS: Basophils % 0.3 % (0.1-2.0); Eosinophils # 0.2 K/mm3 (0.0-0.4); Eosinophils % 1.4 % (0.1-12.0); Hematocrit 33.2 % (37.0-47.0); Hemoglobin 10.9 g/dL (12.2-16.2); Lymphocytes # 2.7 K/mm3 (0.7-4.5); Lymphocytes % 21.5 % (10-50); Mean Corpuscular HGB Conc 32.8 g/dL (31.8-35.4); Mean Corpuscular Hemoglobin 29.1 pg (27.0-31.2); Mean Corpuscular Volume 88.9 fl (81-99); Mean Platelet Volume 8.2 fl (7.4-10.4); Monocytes # 0.8 K/mm3 (0.1-1.0); Monocytes % 6.3 % (1.7-9.3); Neutrophils # 8.7 K/mm3 (1.8-7.8); Neutrophils % 70.6 % (37.0-80.0); Platelet Count 553 K/mm3 (142-424); Red Blood Count 3.73 M/mm3 (4.20-5.40); Red Cell Distribution Width 15.3 % (11.5-17.5); White Blood Count 12.3 K/mm3 (4.8-10.8)
[2023-04-19 07:05] LABS: Alanine Aminotransferase 25 U/L (12-78); Albumin Level 3.8 g/dl (3.5-5.0); Albumin/Globulin Ratio 1.7 (1.1-1.8); Alkaline Phosphatase 97 U/L (38-126); Anion Gap 13.7 mEq/L (5-15); Aspartate Amino Transferase 42 U/L (14-36); Bilirubin,Total 0.7 mg/dl (0.2-1.3); Blood Urea Nitrogen 12 mg/dl (7-17); Carbon Dioxide 28 mmol/L (22.0-30.0); Chloride 96 mmol/L (98-107); Creatinine Clearance Estimated 48 mL/min (50-200); Estimated Glomerular Filt Rate 123 ml/min (>60); GFR (African American) 148 ML/MIN (>60); Globulin 2.2 g/dL (1.3-3.2); Glucose 82 mg/dl (74-100); Magnesium 1.8 mg/dl (1.6-2.3); Phosphorous 3.2 mg/dl (2.5-4.5); Potassium 4.7 mmoL/L (3.5-5.1); Sodium 133 mmol/L (136-145)
[2023-04-19 07:20] VITALS: BP 172/105; PULSE 91; RESP 20; TEMP 36.7; O2SAT 100
--- NOTE | 2023-04-19 07:39 | P.PN_ITS ---
Subjective Patient reports: feels better and flatus Narrative: The patient states that she feels fine . She is hopeful that she will be discharged later today. Exam Data for Last 24 hours Vital signs and Labs for Last 24 Hours: Temp Pulse Resp BP Pulse Ox 98.0 F 91 H 20 172/105 H 100 04/19/23 07:20 04/19/23 07:20 04/19/23 07:20 04/19/23 07:20 04/19/23 07:20 Laboratory Results - last 24 hr 04/19/23 06:08: WBC 12.3 H D, RBC 3.73 L, Hgb 10.9 L, Hct 33.2 L, MCV 88.9, MCH 29.1, MCHC 32.8, RDW 15.3, Plt Count 553 H, MPV 8.2, Neut % (Auto) 70.6, Lymph % (Auto) 21.5, [place] % (Auto) 6.3, Eos % (Auto) 1.4, Baso % (Auto) 0.3, Neut # (Auto) 8.7 H, Lymph # (Auto) 2.7, [place] # (Auto) 0.8, Eos # (Auto) 0.2, Baso # (Auto) 0.0 04/19/23 06:08: Sodium 133 L, Potassium 4.7 D, Chloride 96 L, Carbon Dioxide 28, Anion Gap 13.7, BUN 12 D, Creatinine 0.50 L, Estimated Creat Clear 48, Estimated GFR 123, Est GFR ( Amer) 148 D, Glucose 82, Calcium 9.0, Total Bilirubin 0.7, AST 42 H, ALT 25, Alkaline Phosphatase 97, Total Protein 6.0 L, Albumin 3.8, Globulin 2.2, Albumin/Globulin Ratio 1.7 04/19/23 06:08: Phosphorus 3.2, Magnesium 1.8 I & O for Last 24 hours: Intake & Output 04/16/23 04/17/23 04/18/23 04/19/23 11:59 11:59 11:59 11:59 Intake Total 1625 / 1625 1795 / 1795 Output Total 0 / 0 500 / 500 Balance 1625 / 1625 1295 / 1295 Weight 122 lb 9 oz 123 lb 7.342 oz Microbiology Reports for the Last 24 Hours: Microbiology 04/17/23 22:24 Urine,Clean Catch Urine Culture - Preliminary NO GROWTH AFTER 24 HOURS 04/18/23 17:50 Sputum - Expectorated Sputum Gram Stain - Final Constitutional Constitutional: no acute distress *Routine Respiratory Exam Respiratory: Absent respiratory distress *Routine Abdominal Exam Abdominal: Present soft Progress Note: A&P Assessment and plan (1) SBO (small bowel obstruction): Status: Acute Assessment and plan: The patient is currently passing flatus and feeling much better . She has no evidence of mechanical obstruction. Continue management as per primary service (2) Leukocytosis: Status: Acute (3) Hyponatremia: Status: Acute (4) COPD (chronic obstructive pulmonary disease): Status: Acute
--- NOTE | 2023-04-19 07:50 | EXP.PN ---
Subjective *Date: 04/19/23 *Time: 07:50 Interval history: BP is elevated at 172/105 She is saturating 91% on 6L NC, at baseline she uses 6-7 L NC CBC with 12.3K WBCs, decreased from 18.7 Na is 133, increased from 130 Exam Data for Last 24 hours Vital signs and Labs for Last 24 Hours: Temp Pulse Resp BP Pulse Ox 98.0 F 91 H 20 172/105 H 100 04/19/23 07:20 04/19/23 07:20 04/19/23 07:20 04/19/23 07:20 04/19/23 07:20 Laboratory Results - last 24 hr 04/19/23 06:08: WBC 12.3 H D, RBC 3.73 L, Hgb 10.9 L, Hct 33.2 L, MCV 88.9, MCH 29.1, MCHC 32.8, RDW 15.3, Plt Count 553 H, MPV 8.2, Neut % (Auto) 70.6, Lymph % (Auto) 21.5, [place] % (Auto) 6.3, Eos % (Auto) 1.4, Baso % (Auto) 0.3, Neut # (Auto) 8.7 H, Lymph # (Auto) 2.7, [place] # (Auto) 0.8, Eos # (Auto) 0.2, Baso # (Auto) 0.0 04/19/23 06:08: Sodium 133 L, Potassium 4.7 D, Chloride 96 L, Carbon Dioxide 28, Anion Gap 13.7, BUN 12 D, Creatinine 0.50 L, Estimated Creat Clear 48, Estimated GFR 123, Est GFR ( Amer) 148 D, Glucose 82, Calcium 9.0, Total Bilirubin 0.7, AST 42 H, ALT 25, Alkaline Phosphatase 97, Total Protein 6.0 L, Albumin 3.8, Globulin 2.2, Albumin/Globulin Ratio 1.7 04/19/23 06:08: Phosphorus 3.2, Magnesium 1.8 I & O for Last 24 hours: Intake & Output 04/16/23 04/17/23 04/18/23 04/19/23 23:59 23:59 23:59 23:59 Intake Total 1625 / 1625 600 / 1555 1195 / 1195 Output Total 0 / 0 500 / 500 Balance 1625 / 1625 600 / 1555 695 / 695 Weight 55.593 kg 55 kg 56 kg Microbiology Reports for the Last 24 Hours: Microbiology 04/17/23 22:24 Urine,Clean Catch Urine Culture - Preliminary NO GROWTH AFTER 24 HOURS 04/18/23 17:50 Sputum - Expectorated Sputum Gram Stain - Final Assessment and Plan *Assessment and plan (1) SBO (small bowel obstruction): Status: Acute Category: Medical Code(s): K56.609 - Unspecified intestinal obstruction, unspecified as to partial versus complete obstruction Plan Klaudia Baltazar is a 68 year old female with a past medical history of COPD on hospice who presented with 1 day of nausea, vomiting and abdominal pain. Initial workup was remarkable for Na of 126 and a CBC with 15.6K WBCs. CT of the abdomen/pelvis was concerning for a partial SBO. She received antiemetics and fluids. #Partial small bowel obstruction #accelerated hypertension #Hyponatremia #leukocytosis #COPD Appreciate General Surgery Continue NS @ 75mL/hr GI panel was ordered. Follow urine, blood and sputum cultures. Will start PRN hydralazine. Continuing home medications for COPD including decadron, albuterol QID Continuing other home medications including morphine, valium and remeron Will order a CBC, CMP, magnesium and phosphorus level for tomorrow morning. NPO DNR
--- NOTE | 2023-04-19 10:36 | EXP.DC.SUM ---
General Admission date:: 04/17/23 Discharge date: 04/19/23 HPI HPI HPI: Patient is a 68-year-old female from [place] on hospice care for end-stage COPD. She has some difficulty recalling the exact details leading up to her admission but she had apparently developed some emesis described as water yesterday. She had some reported associated abdominal pain. She states that she normally moves her bowels quite regularly and believes that her last bowel movement was on Monday. She was evaluated in the emergency department. Work-up included CT scan which revealed moderately distended loops of small bowel within the left abdomen for which correlation with potential partial obstruction and/or enteritis is recommended. Patient has had previous . No other significant abdominal surgeries. Does not recall having a colonoscopy. She has leukocytosis of 18,700. Sodium on admission was 126, this morning 130, chloride 85, liver function tests reveal slightly above normal AST of 43 on admission and 37 this morning. Lipase normal. Hospital Course Hospital Course Hospital Course: General surgery evaluated the patient and did not believe the patient had a small bowel obstruction. CT scan was consistent with enteritis. She was passing flatus but did not have a bowel movement possibly because she did not have much to eat. She was given maintenance fluids and sodium level increased from 126 to 133 over 2 days. She developed leukocytosis; this resolved on its own. By the day of discharge she had no complaints and was tolerating a full liquid diet well without any nausea or vomiting in over 24 hours. She will discharging home and will continue to be on hospice for her COPD. Exam Data for Last 24 hours Vital signs and Labs for Last 24 Hours: Temp Pulse Resp BP Pulse Ox 98.0 F 91 H 20 172/105 H 100 04/19/23 07:20 04/19/23 07:20 04/19/23 07:20 04/19/23 07:20 04/19/23 07:20 Laboratory Results - last 24 hr 04/19/23 06:08: WBC 12.3 H D, RBC 3.73 L, Hgb 10.9 L, Hct 33.2 L, MCV 88.9, MCH 29.1, MCHC 32.8, RDW 15.3, Plt Count 553 H, MPV 8.2, Neut % (Auto) 70.6, Lymph % (Auto) 21.5, [place] % (Auto) 6.3, Eos % (Auto) 1.4, Baso % (Auto) 0.3, Neut # (Auto) 8.7 H, Lymph # (Auto) 2.7, [place] # (Auto) 0.8, Eos # (Auto) 0.2, Baso # (Auto) 0.0 04/19/23 06:08: Sodium 133 L, Potassium 4.7 D, Chloride 96 L, Carbon Dioxide 28, Anion Gap 13.7, BUN 12 D, Creatinine 0.50 L, Estimated Creat Clear 48, Estimated GFR 123, Est GFR ( Amer) 148 D, Glucose 82, Calcium 9.0, Total Bilirubin 0.7, AST 42 H, ALT 25, Alkaline Phosphatase 97, Total Protein 6.0 L, Albumin 3.8, Globulin 2.2, Albumin/Globulin Ratio 1.7 04/19/23 06:08: Phosphorus 3.2, Magnesium 1.8 I & O for Last 24 hours: Intake & Output 04/16/23 04/17/23 04/18/23 04/19/23 23:59 23:59 23:59 23:59 Intake Total 1625 / 1625 600 / 1555 1195 / 1195 Output Total 0 / 0 500 / 500 Balance 1625 / 1625 600 / 1555 695 / 695 Weight 55.593 kg 55 kg 56 kg Microbiology Reports for the Last 24 Hours: Microbiology 04/17/23 22:24 Urine,Clean Catch Urine Culture - Preliminary NO GROWTH AFTER 24 HOURS 04/18/23 17:50 Sputum - Expectorated Sputum Gram Stain - Final Constitutional Constitutional: no acute distress *Routine HEENT Exam Head: Present normocephalic Eye: Present EOMI and PERRL ENT: Present mucous membranes moist *Routine Neck Exam Neck: Present supple; Absent lymphadenopathy *Routine Respiratory Exam Respiratory: Present CTA bilaterally *Routine Cardiovascular Exam Cardiovascular: Present RRR *Routine Abdominal Exam Abdominal: Present soft and normoactive bowel sounds; Absent tenderness *Routine Extremities Exam Extremities: Absent cyanosis, clubbing or edema *Routine Skin Exam Skin: Present warm; Absent rash *Routine Neurological Exam Neurological: Present alert and oriented X3 Results Data Completed and Pending Labs on day of discharge: L
[2023-04-19 12:00] VITALS: BP 146/85
== END 2023-04-19 12:09 | disposition hospice, home (50) | DRG 392 ==
LOC: ER 22:02 → 2ND 22:11
PROVIDERS: Emergency Medicine; Internal Medicine; Nurse Practitioner Family; Admitting Provider Internal Medicine Adolescent Medicine; Emergency Provider Emergency Medicine; PCP Internal Medicine; Visit Provider Internal Medicine Adolescent Medicine
DX: K52.9 Noninfective gastroenteritis and colitis, unspecified (principal); E87.1 Hypo-osmolality and hyponatremia; Z99.81 Dependence on supplemental oxygen; J44.9 Chronic obstructive pulmonary disease, unspecified; I10 Essential (primary) hypertension; Z79.899 Other long term (current) drug therapy
CPT/HCPCS: 36415; 74177; 80053; 81001; 82803; 83605; 83690; 83735; 84100; 84295; 84484; 85007; 85025; 87040; 87070; 87086; 87205; 87636; 93005; 99285; C9803; J2405; J2543; Q9967; U0003; U0005

== ENCOUNTER 2023-05-25 05:00 | Emergency (ER) | payer OTHER, MEDICARE, BC, SELFPAY ==
[2023-05-25] VITALS (9 sets, daily range): BP systolic 126–183; BP diastolic 87–108; PULSE 99–124; RESP 12–24; TEMP 37.2; O2SAT 4–99; BMI 21.4
--- NOTE | 2023-05-25 05:46 | ECG_ITS ---
APPROVED REPORT Exam: Resting ECG HR:104 bpm ECG Measurements Heart Rate 104 AXES HI 146 P 61 QRSd 84 QRS 59 QT 304 T 66 QTc 365 Conclusion SINUS TACHYCARDIA WITH OCCASIONAL SUPRAVENTRICULAR PREMATURE COMPLEXES ABNORMAL RHYTHM ECG UNCONFIRMED REPORT Electronically signed by : Sree Emanuel MD 05/25/2023 22:21:02
--- NOTE | 2023-05-25 06:45 | XR_ITS ---
PROCEDURE INFORMATION: Exam: XR Chest Exam date and time: 05/25/2023 5:24 AM Age: 68 years old Clinical indication: Shortness of breath; Additional info: SOA TECHNIQUE: Imaging protocol: Radiologic exam of the chest. Views: 1 view. COMPARISON: CT ABDOMEN PELVIS W CON 04/17/2023 8:21 PM FINDINGS: Lungs: Patchy right basilar airspace opacities. Pleural spaces: Unremarkable. No pleural effusion. No pneumothorax. Heart/Mediastinum: Unremarkable. No cardiomegaly. Vasculature: Small stents are seen in the right hilar region. Bones/joints: Remote appearing fractures of the bilateral clavicles. IMPRESSION: Patchy right basilar airspace opacities may reflect atelectasis versus aspiration or pneumonia.
--- NOTE | 2023-05-25 06:50 | PC.NURSE ---
Dr. Paredes at
--- NOTE | 2023-05-25 06:56 | HMH.EDSOB ---
Discharge Plan Disposition Patient Disposition: Home, Self-Care Prescriptions Prescriptions: New levofloxacin 500 mg tablet 500 mg PO DAILY Qty: 7 0RF No Action sennosides-docusate sodium [Senexon-S] 8.6-50 mg Tablet 2 tab-cap PO HS morphine 30 mg tablet extended release 30 mg PO TID Patient Comments: TAKE 1 TABLET BY MOUTH EVERY 12 HOURS FOR PAIN OR DIFFICULT BREATHING albuterol sulfate 90 mcg/actuation HFA aerosol inhaler 2 puff INHALATION QIDP PRN (Reason: shortness of air) Patient Comments: INHALE 2 PUFFS FOUR TIMES DAILY NEEDED SHORTNESS OF AIR morphine 100 mg/5 mL Concentrate 10 - 20 mg PO Q6HP PRN (Reason: hospice- pain) dexamethasone 4 mg Tablet 2 mg PO DAILY mirtazapine [Remeron] 15 mg Tablet 15 mg PO HS diazepam [Valium] 5 mg Tablet 5 mg PO Q6HP PRN (Reason: anxiety/SOB- hospice) lactulose 10 gram/15 mL Solution 30 ml PO DAILYP PRN (Reason: Constipation) guaifenesin [Mucinex] 600 mg Tablet Extended Release 12hr 600 mg PO BIDP PRN (Reason: Congestion) ondansetron HCl 4 mg Tablet 4 mg PO Q6H PRN (Reason: nausea, vomiting) fluticasone propionate 50 mcg/actuation Petal,Suspension 1 spray INTRANASAL BID Rx Instructions: administer into each nostril Surgilube Gel 1 ea TOPICAL DAILYP PRN (Reason: nose moisture) Deep Sea Nasal 0.65 % Aerosol,Petal 2 spray INTRANASAL QIDP PRN (Reason: dryness) ipratropium-albuterol 0.5 mg-3 mg(2.5 mg base)/3 mL Solution For Nebulization 3 ml INHALATION Q4HP PRN (Reason: SOA- copd) ibuprofen 200 mg Tablet 400 mg PO Q6HP PRN (Reason: Pain) hydroxyzine HCl 25 mg Tablet 25 mg PO Q6HP PRN (Reason: anxiety, itching) Referrals Follow up/Referrals: Sampson Mendosa [Primary Care Provider] - See instructions Clinical Impressions Clinical Impression: Acute exacerbation of chronic obstructive airways disease Instructions Patient Instructions: DI for Chronic Obstructive Pulmonary Disease Discharge ED Provider: Lena (ED)Vladimir Resp/SOB HPI General Chief Complaint: Shortness of Breath/Dyspnea Stated Complaint: SOA Time Seen by Provider: 05/25/23 05:00 Mode of Arrival: EMS Source of Information: Patient, EMS and Medical Record Limitations: No Limitations Description of Symptoms (Recalled from ER Triage Doc. by RN): Pt c/o SOA that woke for up @ 4:30. pt states she is a hospice pt for end stage COPD and wear 6-7L NC History of Present Illness pt with copd and uses home o2 and is hospice - pt had used home meds but was still sob Complaint: shortness of breath Onset (ago): hour(s) Severity: similar to previous episodes Consistency/Duration: intermittent Known history of: COPD Associated symptoms: denies other symptoms Related Data Home oxygen amount: other (5-7) Home Medications Medication Instructions Recorded Confirmed albuterol sulfate 90 mcg/actuation 2 puff inhalation QIDP PRN 04/17/23 04/17/23 aerosol inhaler shortness of air dexamethasone 4 mg tablet 2 mg PO DAILY copd- hospice 04/17/23 04/17/23 diazepam 5 mg tablet (Valium) 5 mg PO Q6HP PRN anxiety/SOB- 04/17/23 04/17/23 hospice fluticasone propionate 50 1 spray intranasal BID Allergy 04/17/23 04/17/23 mcg/actuation nasal symptoms spray,suspension guaifenesin 600 mg tablet, 600 mg PO BIDP PRN Congestion 04/17/23 04/18/23 extended release 12 hr (Mucinex) hydroxyzine HCl 25 mg tablet 25 mg PO Q6HP PRN anxiety, itching 04/17/23 04/17/23 ibuprofen 200 mg tablet 400 mg PO Q6HP PRN Pain 04/17/23 04/18/23 ipratropium 0.5 mg-albuterol 3 mg 3 ml inhalation Q4HP PRN SOA- copd 04/17/23 04/18/23 (2.5 mg base)/3 mL nebulization soln lactulose 10 gram/15 mL oral 30 ml PO DAILYP PRN Constipation 04/17/23 04/18/23 solution mirtazapine 15 mg tablet (Remeron) 15 mg PO HS Depression 04/17/23 04/17/23 morphine 100 mg/5 mL oral 10 - 20 mg PO Q6HP PRN hospice- 04/17/23 04/18/23 concentra
[2023-05-25 06:58] LABS: Alanine Aminotransferase 32 U/L (12-78); Albumin Level 4.7 g/dl (3.5-5.0); Alkaline Phosphatase 102 U/L (38-126); Anion Gap 15.5 mEq/L (5-15); Aspartate Amino Transferase 38 U/L (14-36); Bilirubin,Total 0.4 mg/dl (0.2-1.3); Blood Urea Nitrogen 17 mg/dl (7-17); C-Reactive Protein 4.9 mg/L (0-4); Calcium 9.7 mg/dl (8.4-10.2); Carbon Dioxide 32 mmol/L (22.0-30.0); Chloride 86 mmol/L (98-107); Creatinine Clearance Estimated 48 mL/min (50-200); Estimated Glomerular Filt Rate 99 ml/min (>60); GFR (African American) 120 ML/MIN (>60); Globulin 2.4 g/dL (1.3-3.2); Glucose 83 mg/dl (74-100); NT Pro Brain Natriuretic Pep. 96.5 pg/mL (0-125); Potassium 5.5 mmoL/L (3.5-5.1); Sodium 128 mmol/L (136-145); Total Protein,Serum 7.1 g/dl (6.3-8.2)
[2023-05-25 06:59] LABS: Lactic Acid 2.6 mmol/L (0.7-2.1); Troponin I < 0.01 ng/ml (0.00-0.034)
--- NOTE | 2023-05-25 07:00 | PC.NURSE ---
Assumed patient care
--- NOTE | 2023-05-25 07:00 | PC.NURSE ---
abg collected by respiratory prior to shift change
[2023-05-25 07:01] LABS: Erythrocyte Sedimentation Rate 11 mm/hr (0-30)
[2023-05-25 07:04] LABS: Basophils % 0.2 % (0.1-2.0); Eosinophils # 0.1 K/mm3 (0.0-0.4); Eosinophils % 0.3 % (0.1-12.0); Hemoglobin 11.6 g/dL (12.2-16.2); Lymphocytes # 2.1 K/mm3 (0.7-4.5); Lymphocytes % 9.4 % (10-50); Mean Corpuscular HGB Conc 30.5 g/dL (31.8-35.4); Mean Corpuscular Hemoglobin 27.9 pg (27.0-31.2); Mean Corpuscular Volume 91.7 fl (81-99); Monocytes % 4.4 % (1.7-9.3); Neutrophils # 18.9 K/mm3 (1.8-7.8); Neutrophils % 85.8 % (37.0-80.0); Platelet Count 582 K/mm3 (142-424); Red Blood Count 4.15 M/mm3 (4.20-5.40); Red Cell Distribution Width 14.9 % (11.5-17.5)
--- NOTE | 2023-05-25 07:06 | PC.NURSE ---
Rounded on patient and updated on plan of care. Gave patient call kan. Nothing else needed at this time
[2023-05-25 07:09] LABS: MANUAL DIFFERENTIAL MANUAL DIFFERENTIAL (MANUAL DIFF)
--- NOTE | 2023-05-25 07:20 | PC.NURSE ---
radiology contacted, pt films are being updated
[2023-05-25 07:27] LABS: Procalcitonin 0.067 ng/mL (0.0-2.0)
--- NOTE | 2023-05-25 07:36 | PC.NURSE ---
Charge nurse @ [facility]
--- NOTE | 2023-05-25 07:42 | PC.NURSE ---
radiology contacted, for further information on films, Tyree will have someone call me back with information.
[2023-05-25 07:48] LABS: ABG PH 7.39 mmol/L (7.35-7.45)
[2023-05-25 07:48] LABS: Lymphocytes % 18 % (10-50); Monocytes % 2 % (2-9); Neutrophils % 80 % (42-76); Platelet Estimate Moderate Increase; RBC Morphology Normal; Total Cells Counted 100
--- NOTE | 2023-05-25 07:48 | PC.NURSE ---
per radiology films are in lock status at this time
[2023-05-25 07:49] LABS: ABG Base Excess 4.6 mmol/L (-2.4-2.3); ABG HCO3 29.6 mmhg (22.0-26.0); ABG Oxygen Saturation 97 % (90-100); ABG PCO2 50.1 mmhg (35.0-45.0); ABG PO2 83.6 mmhg (80-100); ABG TCO2 31.1 mmhg (23-27)
[2023-05-25 07:50] LABS: Allen's Test yes; Source Left Radial
--- NOTE | 2023-05-25 07:58 | PC.NURSE ---
family at [facility], pt is updated on poc. at [facility]
--- NOTE | 2023-05-25 08:02 | PC.NURSE ---
Patient requesting a duoneb. notified; V/O for duoneb
--- NOTE | 2023-05-25 08:21 | PC.NURSE ---
Pre-assessment duoneb lung sound: wheezes auscultated to bilateral lungs.
[2023-05-25 10:57] LABS: Reflex Lactic Add Lactic Reflex
== END 2023-05-25 09:03 | disposition home or self-care (01) ==
PROVIDERS: Emergency Provider Emergency Medicine; PCP Internal Medicine
DX: J44.1 Chronic obstructive pulmonary disease with (acute) exacerbation (principal); Z87.891 Personal history of nicotine dependence; R00.0 Tachycardia, unspecified
CPT/HCPCS: 71045; 80053; 82803; 83605; 83880; 84145; 84484; 85007; 85025; 85651; 86140; 87040; 93005; 96374; 99285

== ENCOUNTER 2023-05-28 12:26 | Emergency (ER) | payer OTHER, MEDICARE, BC, SELFPAY ==
[2023-05-28 12:26] VITALS: BP 148/90; PULSE 88; RESP 18; TEMP 36.8; O2SAT 100; BMI 20.7
--- NOTE | 2023-05-28 12:26 | XR_ITS ---
PROCEDURE INFORMATION: Exam: XR Chest Exam date and time: 05/28/2023 12:31 PM Age: 68 years old Clinical indication: Dyspnea; Patient HX: Patient states she has end stage copd. TECHNIQUE: Imaging protocol: Radiologic exam of the chest. Views: 1 view. Portable upright chest x-ray. COMPARISON: CR XR CHEST PORTABLE 05/25/2023 5:24 AM FINDINGS: Lungs: Curvilinear opacities in the right lower lobe are unchanged since 04/17/2023. No confluent airspace consolidation. Lungs are hyperinflated. Pleural spaces: No pleural effusion. No pneumothorax. Heart/Mediastinum: No abnormalities. No cardiomegaly. No pulmonary vascular congestion. Bones/joints: No fractures or bone lesions. IMPRESSION: 1. No acute findings or interval changes in the chest. 2. Curvilinear atelectasis or scarring in the right lung base. Lungs are hyperinflated.
--- NOTE | 2023-05-28 12:34 | PC.NURSE ---
RAD IN ROOM TAKING X-RAY
--- NOTE | 2023-05-28 12:34 | [facility].EDSOB ---
Discharge Plan Disposition Patient Disposition: Home, Self-Care Condition: Fair Chief Complaint: Shortness of Breath/Dyspnea Prescriptions Prescriptions: No Action sennosides-docusate sodium [Senexon-S] 8.6-50 mg Tablet 2 tab-cap PO HS morphine 30 mg tablet extended release 30 mg PO TID Patient Comments: TAKE 1 TABLET BY MOUTH EVERY 12 HOURS FOR PAIN OR DIFFICULT BREATHING albuterol sulfate 90 mcg/actuation HFA aerosol inhaler 2 puff INHALATION QIDP PRN (Reason: shortness of air) Patient Comments: INHALE 2 PUFFS FOUR TIMES DAILY NEEDED SHORTNESS OF AIR morphine 100 mg/5 mL Concentrate 10 - 20 mg PO Q6HP PRN (Reason: hospice- pain) dexamethasone 4 mg Tablet 2 mg PO DAILY mirtazapine [Remeron] 15 mg Tablet 15 mg PO HS diazepam [Valium] 5 mg Tablet 5 mg PO Q6HP PRN (Reason: anxiety/SOB- hospice) lactulose 10 gram/15 mL Solution 30 ml PO DAILYP PRN (Reason: Constipation) guaifenesin [Mucinex] 600 mg Tablet Extended Release 12hr 600 mg PO BIDP PRN (Reason: Congestion) ondansetron HCl 4 mg Tablet 4 mg PO Q6H PRN (Reason: nausea, vomiting) fluticasone propionate 50 mcg/actuation [place],Suspension 1 spray INTRANASAL BID Rx Instructions: administer into each nostril Surgilube Gel 1 ea TOPICAL DAILYP PRN (Reason: nose moisture) Deep Sea Nasal 0.65 % Aerosol,[place] 2 spray INTRANASAL QIDP PRN (Reason: dryness) ipratropium-albuterol 0.5 mg-3 mg(2.5 mg base)/3 mL Solution For Nebulization 3 ml INHALATION Q4HP PRN (Reason: SOA- copd) ibuprofen 200 mg Tablet 400 mg PO Q6HP PRN (Reason: Pain) hydroxyzine HCl 25 mg Tablet 25 mg PO Q6HP PRN (Reason: anxiety, itching) levofloxacin 500 mg tablet 500 mg PO DAILY Qty: 7 0RF Referrals Follow up/Referrals: Provider,Referral, MD [Primary Care Provider] - See instructions Activity Restrictions/Add. Instructions Additional Instructions/Restrictions: Keep all follow-up appointments as scheduled. Return to the emergency department immediately if you feel worse in any way. Take all medications as prescribed. Set your oxygen as prescribed by your primary care doctor. Your work-up in the emergency department today did not reveal any immediately life-threatening conditions. Your sodium was somewhat low. I recommend that you reduce your fluid intake and increase your sodium intake for the next 2 days. Clinical Impressions Clinical Impression: Breath shortness, Panic attack Instructions Patient Instructions: DI for Shortness of Breath, DI for Panic Disorder, Anxiety and Panic Attacks (Alternative Therapy) Discharge ED Provider: Carmen Vera Resp/SOB HPI General Chief Complaint: Shortness of Breath/Dyspnea Stated Complaint: SOA Time Seen by Provider: 05/28/23 12:26 Mode of Arrival: EMS Source of Information: Patient Limitations: No Limitations History of Present Illness The patient presents to the emergency department via EMS complaining of shortness of breath that has worsened since this morning. The patient had a similar episode about 3 days ago. She was seen in the emergency department at that time. 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 She expressed direct instructions that she is not to be resuscitated. The patient denies any fevers. She is on home oxygen at approximately 6 L/min. She also complains of some lower extremity swelling. Otherwise she has no complaints. She denies chest pain. MD Complaint: shortness of breath Related Data Home Medications Medication Instructions Recorded Confirmed albuterol sulfate 90 mcg/actuation 2 puff inhalation QIDP PRN 04/17/23 04/17/23 aerosol inhaler shortness of air dexamethasone 4 mg tablet 2 mg PO DAILY copd- hospice 04/17/23 04/17/23 diazepam 5 mg tablet (Valium) 5 mg PO Q6HP PRN anxiety/SOB- 04/17/23 04/17/23 hospice fluticasone propionate 50 1 spray intranasal BID Allergy 04/17/23
[2023-05-28 12:36] LABS: Basophils % 0.1 % (0.1-2.0); Eosinophils # 0.1 K/mm3 (0.0-0.4); Eosinophils % 0.3 % (0.1-12.0); Hematocrit 35.6 % (37.0-47.0); Hemoglobin 11.2 g/dL (12.2-16.2); Lymphocytes # 0.9 K/mm3 (0.7-4.5); Lymphocytes % 5.7 % (10-50); Mean Corpuscular HGB Conc 31.6 g/dL (31.8-35.4); Mean Corpuscular Hemoglobin 27.8 pg (27.0-31.2); Mean Platelet Volume 7.6 fl (7.4-10.4); Monocytes # 0.6 K/mm3 (0.1-1.0); Neutrophils # 13.5 K/mm3 (1.8-7.8); Neutrophils % 89.9 % (37.0-80.0); Platelet Count 509 K/mm3 (142-424); Red Blood Count 4.04 M/mm3 (4.20-5.40); Red Cell Distribution Width 14.6 % (11.5-17.5)
[2023-05-28 12:37] LABS: MANUAL DIFFERENTIAL MANUAL DIFFERENTIAL (MANUAL DIFF)
[2023-05-28 12:51] LABS: Lymphocytes % 8 % (10-50); Monocytes % 4 % (2-9); Neutrophils % 88 % (42-76); Platelet Estimate Slight Increase; RBC Morphology Normal; Total Cells Counted 100
--- NOTE | 2023-05-28 12:51 | ECG_ITS ---
APPROVED REPORT Exam: Resting ECG HR:85 bpm ECG Measurements Heart Rate 85 AXES HI 126 P 70 QRSd 86 QRS 54 QT 333 T 68 QTc 376 Conclusion SINUS RHYTHM NORMAL ECG UNCONFIRMED REPORT Electronically signed by : Sree Emanuel MD 05/30/2023 20:29:28
[2023-05-28 12:56] LABS: Chloride 84 mmol/L (98-107); Potassium 4.9 mmoL/L (3.5-5.1); Sodium 125 mmol/L (136-145)
--- NOTE | 2023-05-28 12:57 | PC.NURSE ---
got bedside commode for pt
[2023-05-28 12:59] LABS: Anion Gap 14.9 mEq/L (5-15); Blood Urea Nitrogen 23 mg/dl (7-17); Calcium 9.6 mg/dl (8.4-10.2); Carbon Dioxide 31 mmol/L (22.0-30.0); Creatinine Clearance Estimated 48 mL/min (50-200); Estimated Glomerular Filt Rate 99 ml/min (>60); GFR (African American) 120 ML/MIN (>60); Glucose 98 mg/dl (74-100)
[2023-05-28 13:09] LABS: NT Pro Brain Natriuretic Pep. 155 pg/mL (0-125)
[2023-05-28 13:30] VITALS: PULSE 83; O2SAT 99
--- NOTE | 2023-05-28 13:50 | PC.NURSE ---
Patient's daughter requested a pillow for her mother. Pillow provided nothing else needed at this time
--- NOTE | 2023-05-28 14:10 | PC.NURSE ---
Jose Bennett RN hospice called for ; speaking about plan of care
--- NOTE | 2023-05-28 15:54 | PC.NURSE ---
Hospice nurse at bedside with family
[2023-05-28 16:24] VITALS: BP 149/85; PULSE 95; RESP 18; TEMP 36.8; O2SAT 96
== END 2023-05-28 16:26 | disposition home or self-care (01) ==
PROVIDERS: Emergency Provider Emergency Medicine
DX: R06.02 Shortness of breath (principal); F41.0 Panic disorder [episodic paroxysmal anxiety]; J44.9 Chronic obstructive pulmonary disease, unspecified
CPT/HCPCS: 71045; 80048; 83880; 85007; 85025; 93005; 96374; 99285